=== PATIENT | male | born 1980 | race Caucasian/White ===

== ENCOUNTER 2019-11-27 10:55 | Emergency (ER) | payer OTHER ==
[2019-11-27] MEDS ORDERED: Fluorescein Opthalmic Strip ONE (11:02)
[2019-11-27] MEDS ORDERED: Tetracaine 0.5% OPHTH SOLN/PF 4 ML BOT ONE (11:02)
[2019-11-27] MEDS ORDERED: Iopamidol 370 76% 100 ML VIAL ONE (11:07)
[2019-11-27 11:36] LABS: #Basophils 0.1 thou/uL (0.0-0.2); #Lymphocytes 1.2 thou/uL (1.20-3.40); #Monocytes 0.5 thou/uL (0.11-0.59); #Neutrophils 2.3 thou/uL (1.40-6.50); %Basophils 1.4 % (0.0-1.0); %Eosinophils 0.6 % (0.0-10.0); %Lymphocytes 29.5 % (21.0-51.0); %Monocytes 11.4 % (0.0-10.0); %Neutrophils 57.1 % (42.0-75.0); Hemoglobin 15.8 g/dL (14.0-18.0); Mean Corpuscular Hemoglobin 30.3 pg (27.0-31.0); Mean Corpuscular Volume 97.6 fL (78.0-98.0); Mean Platelet Volume 10.3 fL (7.4-10.4); Platelet Count 186 thou/uL (130-400); RBC Distribution Width 12.5 % (11.5-14.5); Red Blood Cell (RBC) Count 5.21 mill/uL (4.70-6.10)
[2019-11-27] MEDS ORDERED: Vancomycin 1.5 GRAM/300 ML BAG ONE (11:36)
[2019-11-27] MEDS ORDERED: Piperacillin/Tazobactam 4.5 GM VIAL ONE (11:36)
[2019-11-27] MEDS ORDERED: Sodium Chloride 0.9% 100 ML ONE ×2 (11:37→14:49)
[2019-11-27 11:53] LABS: ALT (SGPT) 189 U/L (8-55); AST (SGOT) 53 U/L (5-34); Alkaline Phosphatase 49 U/L (40-110); Anion Gap 13 mmol/L (10-20); BUN (Urea Nitrogen) 12 mg/dL (8.9-20.6); Bilirubin, Total 0.2 mg/dL (0.2-1.2); Calc. Creatinine Clearance 0 mL/min (70-130); Calcium 9.1 mg/dL (7.8-10.44); Carbon Dioxide 23 mmol/L (22-29); Chloride 107 mmol/L (98-107); Estimated GFR-MDRD Greater than 90; Globulin 2.8 g/dL (2.4-3.5); Glucose 148 mg/dL (70-105); Potassium 3.8 mmol/L (3.5-5.1); Protein, Total 6.8 g/dL (6.0-8.3); Sodium 139 mmol/L (136-145)
[2019-11-27] MEDS ORDERED: Morphine 4 MG/ML VIAL ONE ×2 (12:24→16:16)
[2019-11-27] MEDS ORDERED: Morphine 2 MG/ML SYRINGE ONE (12:25)
--- NOTE | 2019-11-27 20:57 | CT ---
CT OF THE ORBITS WITH CONTRAST: 11/27/19 Axial slices were acquired after giving IV contrast, then coronal and sagittal reconstructions were d one afterwards. There is some relative increase in enhancement of the anterior part of the globe anterior to the orbi sybil septum, best appreciated on the sagittal view. While there is some mild soft tissue swelling in the region immediately around this, it is truly very mild. The retro-orbital areas are normal in appe arance. No focal abscess was seen. There is no sign of intracranial abscess. The paranasal sinuses ar e clear save for the most minor amount of mucosal thickening in some of the ethmoid air cells. IMPRESSION: While the findings are not dramatic, the possibility of periorbital cellulitis is raised. Findings discussed with Dr. Trujillo at 12:22 on 11/27/19. POS: HOME
== END 2019-11-27 18:02 | disposition short-term general hospital (02) ==
LOC: BURERS 10:55
DX: H05.012 Cellulitis of left orbit (principal); F31.9 Bipolar disorder, unspecified; F43.10 Post-traumatic stress disorder, unspecified; Z79.899 Other long term (current) drug therapy
CPT/HCPCS: 70481; 80053; 85025; 87040; 96365; 96366; 96367; 96375; 96376; J2270; J2543; J3370; J3490; Q9967